=== PATIENT | female | born 1985 | race Caucasian/White ===

== ENCOUNTER 2019-08-11 13:06 | Inpatient (IN) | payer BC ==
[2019-08-11] MEDS ORDERED: Sodium Chloride 0.9% 10 ML Syringe FLUSH PRN (19:31)
[2019-08-11] MEDS ORDERED: Nalbuphine 10 MG/ML Syringe IVPUSH PRN (19:31)
[2019-08-11] MEDS ORDERED: Ondansetron 4 MG/2 ML SDV IVPUSH PRN (19:31)
[2019-08-11] MEDS ORDERED: Misoprostol 25 MCG (1/4 of 100 MCG) Tab VAG ONE ×2 (19:33→23:45)
[2019-08-11] MEDS ORDERED: Oxytocin/Lactated Ringers 10 UNIT/1,000 ML BAG IV SCH ×2 (19:45)
--- NOTE | 2019-08-11 20:14 | PCM.LDHP ---
L&D History of Present Illness - General Date of Service: 08/11/19 Admit Problem/Dx: Patient Status Order with Admit Dx/Problem 08/11/19 19:31 Patient Status [ADT] Routine Admission Diagnosis/Problem Admission Diagnosis/Problem Source of Information: Patient History Limitations: Reports: No Limitations - History of Present Illness Introduction:: Sivan Palma is a 33 year old female at 38 weeks 0 days by a 7-week ultrasound ([facility] 08/25/2019 who presents for medically indicated induction of labor due to chronic hypertension. She reports that she has had irregular contractions over the last week that are occurring every few minutes to 30 minutes and sometimes are getting more painful than others. There never regular and consistent where she felt like she should come in for evaluation. She denies any leaking of fluid or vaginal bleeding. She denies any headaches, vision changes or epigastric pain. Timing/Duration: Reports: intermittent Location, : Reports: Pelvic, Uterus Quality: Reports: Ache Severity: Mild Improves with: Reports: None Worsens with: Reports: None Associated Symptoms: Denies: vaginal bleeding, vaginal discharge, vaginal fluid Present Illness Comments:: Sivan Palma is a 33 year old female at 38 weeks 0 days by a 7-week ultrasound who presents for medically indicated induction of labor due to chronic hypertension. She has had routine care with myself, Dr. Morillo, since 7 weeks gestational age. She received influenza vaccine on 04/22/2019. She received Tdap vaccine on 05/20/2019. Her has been overall uncomplicated however she did start to develop mild range blood pressures starting at around 35 weeks gestational age after she had initial resolution of her elevated blood pressures in early . She did not require any treatment with antihypertensives. She did have to moderate risk factors for preeclampsia with advanced maternal age and obesity and was taking aspirin 81 mg that started at 12 weeks gestational age. complicated by: * Chronic hypertension, patient with initial elevated blood pressures into the mild range in early that resolved by 20 weeks gestational age she then had elevations of her blood pressures at around 35 weeks gestational age with normal labs that have been checked weekly since then * Advanced maternal age -patient currently age 33 with a normal Prequel noninvasive screening test. 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 Low risk for trisomy 13, 18 or 21. Normal sex chromosomal analysis. Female by sex chromosomal testing anatomy ultrasound: Normal anatomy ultrasound completed over the course of 2 ultrasounds , posterior placenta, 50th percentile initially and 31st percentile on follow- up exam, most recent ultrasound at 62nd percentile One hour glucose tolerance test: 134 Second trimester hematocrit/hemoglobin: 40.7%/13.3 on 05/06/2019 Platelets: 263 on 05/06/2019 3-hour glucose tolerance test: Fasting 85, 1 hour 158, 2-hour 92, 3-hour 62 Third trimester hematocrit/hemoglobin: 41.4%/13.8 on 07/15/2019 Platelets: 255 on 07/15/2019 GBS status: Negative - Related Data Allergies/Adverse Reactions: Allergies Allergy/AdvReac Type Severity Reaction Status Date / Time No Known Allergies Allergy Verified 03/11/19 11:42 Past Medical History Cardiovascular History: Reports: Hypertension (chronic) 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: Reports: , Other (See Below) (Benign right breast lump) : 3 Para: 1 Social & Family History - Tobacco Use Smoking Status *Q: Never Smoker Tobacco Use Within Last Twelve Months: No - Tobacco Core Measures Tobacco Use/Smoking Within Last 30 Days: No Smokeless Tobacco Use in Last 30 Days: No - Alcohol Use Alcohol Use History: No - Recreational Drug Use Recreational Drug Use: No Drug Use in Last 12 Months: No - Living Situation & Occupation Living situation: Reports: , with Spouse H&P Review of Systems - Review of Systems: Review Of Systems: See Below General: Denies: Fever, Chills, Malaise, Weakness, Fatigue HEENT: Denies: Eye Pain, Headaches, Rhinitis, Post Nasal Drip, Sinus Congestion , Sore Throat, Visual Changes Pulmonary: Denies: Shortness of Breath, Wheezing, Pleuritic Chest Pain, Cough Cardiovascular: Denies: Chest Pain, Palpitations, Dyspnea on Exertion, Orthopnea Gastrointestinal: Denies: Abdominal Pain, Constipation, Diarrhea, Nausea, Vomiting Genitourinary: Denies: Dysuria, Frequency, Burning, Pain, Urgency Musculoskeletal: Reports: Back Pain (and hip pain of ) Skin: Denies: Rash, Lesions Psychiatric: Denies: Depression, Anxiety Immunologic: Reports: Seasonal Allergy L&D Exam - Exam Exam: See Below - Vital Signs Weight: 124.738 kg - OB Specific Contraction Duration (sec): 45-60 Contraction Frequency (min): 5 Contraction Intensity: Mild Movement: Active Heart Tones: Present Heart Tones per Min: 145 (+15 x 15 accelerations, no decelerations) Heart Rate (FHR) Variability: Moderate (6-25 bmp) Presentation: Vertex Estimated Weight: 7 to 7.5 pounds by Ugo's - Rowell Score Rowell Score Cervix Position: Anterior Rowell Score Consistency: Soft Rowell Score Effacement: >80% (80%) Rowell Score Dilation: 1-2 cm (2 cm) Rowell Score 's Station: -3 Rowell Score Total: 8 - Exam General: Alert, Oriented HEENT: Conjunctiva Clear, EOMI Neck: Supple, Trachea Midline Lungs: Clear to Auscultation, Normal Respiratory Effort Cardiovascular: Regular Rate, Regular Rhythm GI/Abdominal Exam: Soft, Non-Tender, No Distention, Other (Gravid). No: Guarding, Rigid, Rebound Genitourinary: Normal external exam, Other (18 [place] transcervical Fraire bulb placed manually and filled with 60 mL of sterile saline. Mother and tolerated without difficulty.) Extremities: No Pedal Edema Skin: Warm, Dry, Intact Psychiatric: Alert, Normal Affect, Normal Mood - Problem List (1) Third trimester SNOMED Code(s): 52009949 ICD Code: Z34.93 - ENCNTR FOR SUPRVSN OF NORMAL PREG, UNSP, THIRD TRIMESTER Status: Acute Current Visit: Yes (2) Chronic hypertension SNOMED Code(s): 89303566, 20401023 ICD Code: I10 - ESSENTIAL (PRIMARY) HYPERTENSION Status: Acute Current Visit: Yes (3) Chronic hypertension in obstetric context in third trimester SNOMED Code(s): 6245874, 08090107 ICD Code: O10.913 - UNSP PRE-EXISTING HTN COMP , THIRD TRIMESTER Status: Acute Current Visit: Yes (4) Advanced maternal age in multigravida SNOMED Code(s): 581563608 ICD Code: O09.529 - SUPERVISION OF ELDERLY MULTIGRAVIDA, UNSPECIFIED TRIMESTER Status: Acute Current Visit: Yes Problem List Initiated/Reviewed/Updated: Yes Orders Last 24hrs: Active Orders 24 hr Category Date Time Status Patient Status [ADT] Routine ADT 08/11/19 19:31 Active Activity as Tolerated [RC] PFP Care 08/11/19 19:31 Active Communication Order [RC] ASDIRECTED Care 08/11/19 19:31 Active Heart Tones [RC] ASDIRECTED Care 08/11/19 19:31 Active Non Stress Test [RC] PER UNIT ROUTINE Care 08/11/19 19:31 Active Notify Provider [RC] PFP Care 08/11/19 19:31 Active Notify Provider [RC] PRN Care 08/11/19 19:31 Active Peripheral IV Care [RC] . DIRECTED Care 08/11/19 19:31 Active Pump Management, Intrathecal [RC] ASDIRECTED Care 08/11/19 19:33 Active Urinary Catheter Assessment [RC] ASDIRECTED Care 08/11/19 19:31 Active Vital Signs [RC] PER UNIT ROUTINE Care 08/11/19 19:31 Active Regular Diet [DIET] Diet 08/11/19 Dinner Active CBC WITH AUTO DIFF [HEME] Stat Lab 08/11/19 19:31 Ordered COMPREHENSIVE METABOLIC PN,CMP [CHEM] Routine Lab 08/11/19 19:41 Ordered PROTEIN/CREATININE RATIO,URINE [URCHEM] Routine Lab 08/11/19 19:41 Ordered RAPID PLASMA REAGIN,RPR [CHEM] Routine Lab 08/11/19 19:31 Ordered TYPE AND SCREEN [BBK] Stat Lab 08/11/19 19:31 Ordered Lactated Ringers [Ringers, Lactated] 1,000 ml Med 08/11/19 19:45 Active IV ASDIRECTED Nalbuphine [Nubain] Med 08/11/19 19:31 Active 10 mg IVPUSH Q2H PRN Ondansetron [Zofran] Med 08/11/19 19:31 Active 4 mg IVPUSH Q4H PRN Oxytocin/Lactated Ringers [Pitocin in LR 10 Units/1,000 Med 08/11/19 19:45 Ordered ML] 10 unit in 1,000 ml IV .CONTINUOUS Oxytocin/Lactated Ringers [Pitocin in LR 10 Units/1,000 Med 08/11/19 19:45 Active ML] 10 unit in 1,000 ml IV TITRATE Sodium Chloride 0.9% [Saline Flush] Med 08/11/19 19:31 Active 10 ml FLUSH ASDIRECTED PRN Electronic Heart Tones Ext w TOCO [WOMSER] Oth 08/11/19 19:31 Ordered Routine Electronic Heart Tones Internal [WOMSER] Per Unit Ot 08/11/19 19:31 Ordered Routine Peripheral IV Insertion Adult [OM.PC] Routine Ot 08/11/19 19:31 Ordered Resuscitation Status Routine Resus Stat 08/11/19 19:31 Ordered Medication Orders Lactated Ringer's (Ringers, Lactated) 1,000 mls @ 100 mls/hr IV ASDIRECTED CLARKE Oxytocin/Lactated Ringer's (Pitocin In Lr 10 Units/1,000 Ml) 10 unit in 1,000 mls @ 500 mls/hr IV .CONTINUOUS CLARKE Oxytocin/Lactated Ringer's (Pitocin In Lr 10 Units/1,000 Ml) 10 unit in 1,000 mls @ 12 mls/hr IV TITRATE CLARKE; Protocol Nalbuphine HCl (Nubain) 10 mg IVPUSH Q2H PRN PRN Reason: Pain Ondansetron HCl (Zofran) 4 mg IVPUSH Q4H PRN PRN Reason: Nausea/Vomiting Sodium Chloride (Saline Flush) 10 ml FLUSH ASDIRECTED PRN PRN Reason: Keep Vein Open Assessment/Plan Comment:: Refer to observation for medically indicated induction of labor for chronic hypertension Start induction of labor with Cytotec 25 mcg vaginally now and every 4 hours Intermittent monitoring while on Cytotec with monitoring for 30 minutes after placement of Cytotec and may ambulate as tolerated with category 1 monitoring Patient with 18 [place] transcervical Fraire bulb placed and filled with 60 mL of sterile saline. Place Fraire bulb on traction once patient is able to tolerate. Place IV and have Lactated Ringer's at 125 ml/hr if not tolerating regular diet May have regular diet while on Cytotec induction Activity as tolerated May have epidural as desired Plans to breast-feed after delivery Anticipate vaginal delivery unless otherwise indicated José Morillo MD 8:23 PM 08/11/2019
[2019-08-12] MEDS: Lactated Ringers 1,000 ML IV SCH ×5 (02:10→10:38)
[2019-08-12] MEDS ORDERED: ePHEDrine 50 MG/ML SDV IVPUSH PRN (02:25)
[2019-08-12] MEDS ORDERED: Bupivacaine/fentaNYL/NS 100 ML Bag EPIDUR PRN (02:25)
[2019-08-12] MEDS ORDERED: fentaNYL 100 MCG/2 ML SDV EPIDUR PRN (02:25)
[2019-08-12] MEDS ORDERED: diphenhydrAMINE 50 MG/ML SDV IVPUSH PRN (02:25)
--- NOTE | 2019-08-12 03:03 | PCM.PREANE ---
Preanesthetic Assessment - Anesthesia/Transfusion/Family Hx Anesthesia History: Prior Anesthesia Without Reaction Transfusion History: No Prior Transfusion(s) - Review of Systems General: No Symptoms Pulmonary: No Symptoms Cardiovascular: No Symptoms Gastrointestinal: No Symptoms Neurological: No Symptoms Other: Reports: None - Physical Assessment NPO Status Date: 08/12/19 NPO Status Time: 02:58 Vital Signs: Last Vital Signs Temp 98.7 F 08/11/19 20:00 Pulse 108 H 08/11/19 20:00 Resp 18 08/11/19 20:00 BP 133/81 08/11/19 20:00 Pulse Ox 98 08/11/19 20:00 Height: 1.75 m Weight: 124.738 kg ASA Class: 3 (obesity) Mental Status: Alert & Oriented x3 Airway Class: Mallampati = 3 Dentition: Reports: Normal Dentition Thyro-Mental Finger Breadths: 3 Mouth Opening Finger Breadths: 3 ROM/Head Extension: Full Lungs: Clear to Auscultation, Normal Respiratory Effort Cardiovascular: Regular Rate, Regular Rhythm - Lab Values: Laboratory Last Values WBC 8.71 K/mm3 (3.98-10.04) 08/11/19 08:25 RBC 4.76 M/mm3 (3.98-5.22) 08/11/19 08:25 Hgb 12.8 gm/dl (11.2-15.7) 08/11/19 08:25 Hct 38.8 % (34.1-44.9) 08/11/19 08:25 MCV 81.5 fl (79.4-94.8) 08/11/19 08:25 MCH 26.9 pg (25.6-32.2) 08/11/19 08:25 MCHC 33.0 g/dl (32.2-35.5) 08/11/19 08:25 RDW Std Deviation 41.3 fL (36.4-46.3) 08/11/19 08:25 Plt Count 241 K/mm3 (182-369) 08/11/19 08:25 MPV 9.6 fl (9.4-12.3) 08/11/19 08:25 Neut % (Auto) 76.9 % (34.0-71.1) H 08/11/19 08:25 Lymph % (Auto) 16.5 % (19.3-51.7) L 08/11/19 08:25 Hood % (Auto) 6.0 % (4.7-12.5) 08/11/19 08:25 Eos % (Auto) 0.3 (0.7-5.8) L 08/11/19 08:25 Baso % (Auto) 0.0 % (0.1-1.2) L 08/11/19 08:25 Neut # (Auto) 6.69 K/mm3 (1.56-6.13) H 08/11/19 08:25 Lymph # (Auto) 1.44 K/mm3 (1.18-3.74) 08/11/19 08:25 Hood # (Auto) 0.52 K/mm3 (0.24-0.36) H 08/11/19 08:25 Eos # (Auto) 0.03 K/mm3 (0.04-0.36) L 08/11/19 08:25 Baso # (Auto) 0.00 K/mm3 (0.01-0.08) L 08/11/19 08:25 Sodium 136 mEq/L (136-145) 08/11/19 08:25 Potassium 3.7 mEq/L (3.5-5.1) 08/11/19 08:25 Chloride 103 mEq/L (98-107) 08/11/19 08:25 Carbon Dioxide 20 mEq/L (21-32) L 08/11/19 08:25 Anion Gap 16.7 (5-15) H 08/11/19 08:25 BUN 9 mg/dL (7-18) 08/11/19 08:25 Creatinine 0.7 mg/dL (0.55-1.02) 08/11/19 08:25 Est Cr Clr Drug Dosing 117.23 mL/min 08/11/19 08:25 Estimated GFR (MDRD) > 60 mL/min (>60) 08/11/19 08:25 BUN/Creatinine Ratio 12.9 (14-18) L 08/11/19 08:25 Glucose 118 mg/dL (74-106) H 08/11/19 08:25 Calcium 9.1 mg/dL (8.5-10.1) 08/11/19 08:25 Total Bilirubin 0.2 mg/dL (0.2-1.0) 08/11/19 08:25 AST 10 U/L (15-37) L 08/11/19 08:25 ALT 12 U/L (14-59) L 08/11/19 08:25 Alkaline Phosphatase 89 U/L (46-116) 08/11/19 08:25 Total Protein 7.1 g/dl (6.4-8.2) 08/11/19 08:25 Albumin 2.4 g/dl (3.4-5.0) L 08/11/19 08:25 Globulin 4.7 gm/dL 08/11/19 08:25 Albumin/Globulin Ratio 0.5 (1-2) L 08/11/19 08:25 Ur Random Creatinine 160.2 mg/dL (30.0-125.0) H 08/11/19 20:00 U Random Total Protein 20.7 mg/dL (0.0-11.8) H 08/11/19 20:00 Protein/Creatinin Ratio 129.2 mg/g (0-149) 08/11/19 20:00 RPR Non-reactive (NONREACTIVE) 08/11/19 08:25 Blood Type A POSITIVE 08/11/19 08:25 Gel Antibody Screen Negative 08/11/19 08:25 - Allergies Allergies/Adverse Reactions: Allergies Allergy/AdvReac Type Severity Reaction Status Date / Time No Known Allergies Allergy Verified 03/11/19 11:42 - Acknowledgements Anesthesia Type Planned: Epidural Pt an Appropriate Candidate for the Planned Anesthesia: Yes Alternatives and Risks of Anesthesia Discussed w Pt/Guardian: Yes Pt/Guardian Understands and Agrees with Anesthesia Plan: Yes PreAnesthesia Questionnaire Cardiovascular History: Reports: Hypertension (chronic) 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: , 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 (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 Below) (Benign right breast lump) Endocrine/Metabolic History: Reports: Obesity/BMI 30+ - SUBSTANCE USE Smoking Status *Q: Never Smoker Tobacco Use Within Last Twelve Months: No Second Hand Smoke Exposure: No Recreational Drug Use History: No - HOME MEDS Home Medications: Home Meds Aspirin [Adult Low Dose Aspirin EC] 81 mg PO DAILY 08/11/19 [History] RER018/Iron Fumarate/FA/DSS [ 19 Tablet] 1 tab PO DAILY 08/11/19 [ History] - CURRENT (IN HOUSE) MEDS Current Meds: Current Medications Diphenhydramine HCl (Benadryl) 25 mg IVPUSH Q6H PRN PRN Reason: pruritis Ephedrine Sulfate (Ephedrine Sulfate) 5 mg IVPUSH ASDIRECTED PRN PRN Reason: Hypotension Fentanyl (Sublimaze) 100 mcg EPIDUR Q3H PRN PRN Reason: Pain Fentanyl/Bupivacaine HCl (Fentanyl/Bupivacaine/Ns 2 Mcg-0.125% 100 Ml) 100 ml EPIDUR ASDIRECTED PRN PRN Reason: Pain Lactated Ringer's (Ringers, Lactated) 1,000 mls @ 100 mls/hr IV ASDIRECTED CLARKE Last Admin: 08/12/19 02:10 Dose: 999 mls/hr Oxytocin/Lactated Ringer's (Pitocin In Lr 10 Units/1,000 Ml) 10 unit in 1,000 mls @ 500 mls/hr IV .CONTINUOUS CLARKE Oxytocin/Lactated Ringer's (Pitocin In Lr 10 Units/1,000 Ml) 10 unit in 1,000 mls @ 12 mls/hr IV TITRATE CLARKE; Protocol Nalbuphine HCl (Nubain) 10 mg IVPUSH Q2H PRN PRN Reason: Pain Ondansetron HCl (Zofran) 4 mg IVPUSH Q4H PRN PRN Reason: Nausea/Vomiting Sodium Chloride (Saline Flush) 10 ml FLUSH ASDIRECTED PRN PRN Reason: Keep Vein Open Discontinued Medications Misoprostol (Cytotec) 25 mcg VAG ONETIME ONE Stop: 08/11/19 19:34 Last Admin: 08/11/19 19:57 Dose: 25 mcg Misoprostol (Cytotec) 25 mcg VAG ONETIME ONE Stop: 08/11/19 23:46 Last Admin: 08/12/19 00:12 Dose: 25 mcg
--- NOTE | 2019-08-12 08:47 | PCM.PNLD ---
Labor Progress Note - VS & Meds Vital Signs: Last Vital Signs Temp 37.1 C 08/11/19 20:00 Pulse 108 H 08/11/19 20:00 Resp 18 08/11/19 20:00 BP 133/81 08/11/19 20:00 Pulse Ox 98 08/11/19 20:00 Active Medications: Current Medications Diphenhydramine HCl (Benadryl) 25 mg IVPUSH Q6H PRN PRN Reason: pruritis Ephedrine Sulfate (Ephedrine Sulfate) 5 mg IVPUSH ASDIRECTED PRN PRN Reason: Hypotension Fentanyl (Sublimaze) 100 mcg EPIDUR Q3H PRN PRN Reason: Pain Last Admin: 08/12/19 03:09 Dose: 100 mcg Fentanyl/Bupivacaine HCl (Fentanyl/Bupivacaine/Ns 2 Mcg-0.125% 100 Ml) 100 ml EPIDUR ASDIRECTED PRN PRN Reason: Pain Last Admin: 08/12/19 03:10 Dose: 100 ml Lactated Ringer's (Ringers, Lactated) 1,000 mls @ 100 mls/hr IV ASDIRECTED CLARKE Last Admin: 08/12/19 06:40 Dose: 500 mls/hr Oxytocin/Lactated Ringer's (Pitocin In Lr 10 Units/1,000 Ml) 10 unit in 1,000 mls @ 500 mls/hr IV .CONTINUOUS CLARKE Oxytocin/Lactated Ringer's (Pitocin In Lr 10 Units/1,000 Ml) 10 unit in 1,000 mls @ 12 mls/hr IV TITRATE CLARKE; Protocol Last Titration: 08/12/19 07:50 Dose: 8 munits/min, 48 mls/hr Nalbuphine HCl (Nubain) 10 mg IVPUSH Q2H PRN PRN Reason: Pain Ondansetron HCl (Zofran) 4 mg IVPUSH Q4H PRN PRN Reason: Nausea/Vomiting Sodium Chloride (Saline Flush) 10 ml FLUSH ASDIRECTED PRN PRN Reason: Keep Vein Open Discontinued Medications Misoprostol (Cytotec) 25 mcg VAG ONETIME ONE Stop: 08/11/19 19:34 Last Admin: 08/11/19 19:57 Dose: 25 mcg Misoprostol (Cytotec) 25 mcg VAG ONETIME ONE Stop: 08/11/19 23:46 Last Admin: 08/12/19 00:12 Dose: 25 mcg - Uterine Contractions Contraction Frequency (min): 2-3 Contraction Duration (sec): 60-75 Contraction Intensity: Moderate to Strong Uterine Resting Tone: Soft - Monitoring Monitor Mode: Doppler/Auscultation Heart Rate (FHR) Baseline: 140 Heart Rate (FHR) Per Doppler: 140 Heart Rate (FHR) Variability: Moderate (6-25 bmp) Accelerations: Present, 15x15 Decelerations: Variable, Intermittent (<50% x 20 min) Strip Review: Category II - Vaginal Exam Dilation (cm): 5 cm Effacement (Percent): 80% Station: -2 Cervical Position: Anterior Sterile Vaginal Exam Performed By: José Morillo Vaginal Exam Comment: Artificial rupture of membranes performed with [place] with return of moderate amount of clear fluid. Mother and tolerated without difficulty. - Labor Progress (Free Text) Labor Progress: Artificial rupture membranes performed without difficulty. There was a return of a moderate amount of clear fluid. Mother and tolerated without difficulty. Epidural in place and patient doing well Continue augmentation of labor with Pitocin Continuous monitoring Continue routine vitals. Monitor for severe range blood pressures which would indicate need for treatment of these blood pressures. Would also want to evaluate further for possible preeclampsia with severe features. Anticipate vaginal delivery unless otherwise indicated José Morillo MD 8:52 AM 08/12/2019
[2019-08-12] MEDS ORDERED: Acetaminophen 325 MG Tab PO PRN ×2 (09:21→16:27)
[2019-08-12] MEDS ORDERED: ePHEDrine/Normal Saline 25 MG/5 ML Syringe ONE (14:00)
[2019-08-12] MEDS ORDERED: Lidocaine 1.5% with EPINEPHrine 1:200,000 5 ML Amp ONE (14:00)
--- NOTE | 2019-08-12 14:05 | PCM.DEL ---
L & D Note - General Info Date of Service: 08/12/19 Mother's Due Date: 08/25/19 - Delivery Note Labor: Augmented by ARM, Augmented by Oxytocin Cervical Ripening Method: Balloon Device (18 Surinamese transcervical Fraire bulb filled with 60 mL of sterile saline), Misoprostil (25 mcg x 2 doses) Delivery Outcome: Livebirth Delivery Method: Spontaneous Vaginal Delivery-Single Delivery Mode: Vacuum Extraction (Kiwi sorensen extractor) Presentation: Right Occiput Posterior (ROP) Nuchal Cord: Present, Reduced (after delivery) Prep: Povidone-Iodine (Betadine Anesthesia Type: Epidural Amniotic Fluid Description: Clear Episiotomy Type: None Laceration: 3rd Degree (partial third degree repaired with interrupted suture of 2-0 Vicryl rapide), Perineal (Midline perineal portion of repaired completed with 3-0 Vicryl) Suture type: Vicryl Suture size: 2-0 Placenta: Intact, Spontaneous Cord: 3 Vessels Estimated Blood Loss: 300 Resuscitation Needed: Yes : Bulb Syringe, Stimulated, Warmed, [place] Used Provider: José Morillo Score 1 min: 7 Score 5 min: 9 Post Delivery Events: Unplanned Procedure (vacuum extractor delivery due to persistent bradycardia into the 70-80s) Second Stage Interventions: Reports: Pushing, Stirrups/Leg Supports Delivery Comments (Free Text/Narrative):: Stage I: Sivan Palma was admitted for medically indicated induction of labor due to chronic hypertension. On admission her cervix was dilated to 2 cm. She was GBS negative. She had manual placement of a 18 Surinamese transcervical Fraire bulb filled with 60 mL of sterile saline. She was started on Cytotec for initial induction and received a total of 2 doses after which the Fraire bulb came out spontaneously. She was started on Pitocin for augmentation of labor. She was given an epidural for anesthesia. She had artificial rupture of membranes with clear fluid. She had some variable decelerations and her Pitocin was stopped and on evaluation she had quickly changed from 5 cm to complete over the course of approximately 30 minutes. She began pushing when she reached complete cervical dilation. Stage II: During pushing she was noted to be making good progress until the was at a +3 station when there was noted to be persistent bradycardia into the 70s to 80s over the course of 2 minutes. Decision was made to proceed with vacuum extractor delivery. The patient was given counseling on the risks of the vacuum delivery including possible bruising on the head, scalp laceration and bleeding on the brain. Also given warning that it could lead to larger than normal tear. The Kiwi sorensen type extractor was then placed on the head approximately 2 cm anterior to the posterior fontanelle and with the next push suction was applied. Vacuum was applied to 550 mmHg. Over the course of 1 push the head was brought to a +5 station and the vacuum extractor had a pop off at this time. A decision was made to not reapply the vacuum and the delivery was completed without difficulty. The vacuum extractor was applied for a total of 45 seconds. There was 1 total pop-off. On 08/12/2019 she had a vacuum extractor vaginal delivery of a live female infant at 13:06. Apgars of 7 & 9. Weight of 3170 g (6 lbs 15.8 oz). Length of 20 inches. There was a single nuchal cord that was delivered through and reduced after delivery. Infant was delivered in direct OP position. The cord was doubly clamped and cut by father of the with delayed cord clamping of approximately 1 minute. was placed on mother's abdomen. Stage III: She had a spontaneous delivery of an intact placenta in [place] presentation. Three vessel cord. She was given pitocin and fundal massage. She had a partial third-degree laceration of the superior portion of the external anal sphincter. This was repaired with a single interrupted suture of 2-0 Vicryl repeated. The remainder of the midline perineal laceration was repaired with 3-0 Vicryl in normal fashion. Mom and baby were stable to recovery. EBL of 300 mL. José Morillo MD 2:05 PM 08/12/2019 Induction Criteria - Rowell Score Rowell Score Dilation: 1-2 cm Rowell Score Effacement: >80% Rowell Score Infant's Station: -3 Rowell Score Consistency: Soft Rowell Score Cervix Position: Anterior Rowell Score Total: 8 Rowell Score Presenting Part: Reports: Cephalic - Induction Gestational Age >/= 39 wks: No Medical Indication: Chronic hypertension Estimated Pelvis: Reports: Adequate Reassuring Monitoring Strip: Yes Absence of Tachy Systole: Yes - Augmentation Estimated Pelvis: Reports: Adequate Reassuring Monitoring Strip: Yes Absence of Tachy Systole: Yes Vacuum Extractor Progress Note - Alternative Labor Strategies Considered Alternative Labor Strategies Considered:: Reports: Yes Strategies Considered:: Reports: Contraction Intensity Adequate Indications Considered:: Reports: Yes Indications:: Reports: Suspicion of Immediate or Potential Compromise ( persistent bradycardia in the 70-80s) Time Out:: Reports: Yes - Patient Prepared Patient Prepared:: Reports: Yes Informed Consent:: Reports: Verbal Risks: Reports: Yes Risks Include:: Reports: Laceration, Shoulder Dystocia, Maternal Injury Anesthesia/Analgesia Adequate:: Reports: Yes - Probability of Success High Probability of Success:: Reports: Yes Weight Estimated:: Reports: AGA Patient Diabetic:: Reports: No Pelvis Adequate:: Reports: Yes Position:: Direct OP Asynclitic:: Reports: No Station:: +3 - Application Time Maximum Application Time & Number of Pop-Offs Predetermined:: Reports: Yes Maximum Pressure Maintained in [place] (cm Hg):: 55 Total Application Time (min): *max=20min: 1 Number of Times Cup Disengaged:: 1 Type of Vacuum Used:: Reports: Cup: Sorensen type Vacuum Extraction: Successful - Exit Strategy Exit strategy available:: Reports: Yes and resuscitation teams readily available:: Reports: Yes - General Info Date of Service: 08/12/19 - Patient Data Vitals - Most Recent: Last Vital Signs Temp 37.1 C 08/11/19 20:00 Pulse 108 H 08/11/19 20:00 Resp 18 08/11/19 20:00 BP 133/81 08/11/19 20:00 Pulse Ox 98 08/11/19 20:00 Weight - Most Recent: 124.738 kg I&O - Last 24 Hours: Intake & Output 08/11/19 08/12/19 08/12/19 22:59 06:59 14:59 Intake Total 4180 Balance 4180 Lab Results Last 24 Hours: Laboratory Results - last 24 hr 08/11/19 08/11/19 08/11/19 Range/Units 08:25 08:25 08:25 WBC 8.71 (3.98-10.04) K/mm3 RBC 4.76 (3.98-5.22) M/mm3 Hgb 12.8 (11.2-15.7) gm/dl Hct 38.8 (34.1-44.9) % MCV 81.5 (79.4-94.8) fl MCH 26.9 (25.6-32.2) pg MCHC 33.0 (32.2-35.5) g/dl RDW Std Deviation 41.3 (36.4-46.3) fL Plt Count 241 (182-369) K/mm3 MPV 9.6 (9.4-12.3) fl Neut % (Auto) 76.9 H (34.0-71.1) % Lymph % (Auto) 16.5 L (19.3-51.7) % [place] % (Auto) 6.0 (4.7-12.5) % Eos % (Auto) 0.3 L (0.7-5.8) Baso % (Auto) 0.0 L (0.1-1.2) % Neut # (Auto) 6.69 H (1.56-6.13) K/mm3 Lymph # (Auto) 1.44 (1.18-3.74) K/mm3 [place] # (Auto) 0.52 H (0.24-0.36) K/mm3 Eos # (Auto) 0.03 L (0.04-0.36) K/mm3 Baso # (Auto) 0.00 L (0.01-0.08) K/mm3 Sodium (136-145) mEq/L Potassium (3.5-5.1) mEq/L Chloride (98-107) mEq/L Carbon Dioxide (21-32) mEq/L Anion Gap (5-15) BUN (7-18) mg/dL Creatinine (0.55-1.02) mg/dL Est Cr Clr Drug Dosing mL/min Estimated GFR (MDRD) (>60) mL/min BUN/Creatinine Ratio (14-18) Glucose (74-106) mg/dL Calcium (8.5-10.1) mg/dL Total Bilirubin (0.2-1.0) mg/dL AST (15-37) U/L ALT (14-59) U/L Alkaline Phosphatase (46-116) U/L Total Protein (6.4-8.2) g/dl Albumin (3.4-5.0) g/dl Globulin gm/dL Albumin/Globulin Ratio (1-2) Ur Random Creatinine (30.0-125.0) mg/dL U Random Total Protein (0.0-11.8) mg/dL Protein/Creatinin Ratio (0-149) mg/g RPR Non-reactive (NONREACTIVE) Blood Type A POSITIVE Gel Antibody Screen Negative 08/11/19 08/11/19 Range/Units 08:25 20:00 WBC (3.98-10.04) K/mm3 RBC (3.98-5.22) M/mm3 Hgb (11.2-15.7) gm/dl Hct (34.1-44.9) % MCV (79.4-94.8) fl MCH (25.6-32.2) pg MCHC (32.2-35.5) g/dl RDW Std Deviation (36.4-46.3) fL Plt Count (182-369) K/mm3 MPV (9.4-12.3) fl Neut % (Auto) (34.0-71.1) % Lymph % (Auto) (19.3-51.7) % [place] % (Auto) (4.7-12.5) % Eos % (Auto) (0.7-5.8) Baso % (Auto) (0.1-1.2) % Neut # (Auto) (1.56-6.13) K/mm3 Lymph # (Auto) (1.18-3.74) K/mm3 [place] # (Auto) (0.24-0.36) K/mm3 Eos # (Auto) (0.04-0.36) K/mm3 Baso # (Auto) (0.01-0.08) K/mm3 Sodium 136 (136-145) mEq/L Potassium 3.7 (3.5-5.1) mEq/L Chloride 103 (98-107) mEq/L Carbon Dioxide 20 L (21-32) mEq/L Anion Gap 16.7 H (5-15) BUN 9 (7-18) mg/dL Creatinine 0.7 (0.55-1.02) mg/dL Est Cr Clr Drug Dosing 117.23 mL/min Estimated GFR (MDRD) > 60 (>60) mL/min BUN/Creatinine Ratio 12.9 L (14-18) Glucose 118 H (74-106) mg/dL Calcium 9.1 (8.5-10.1) mg/dL Total Bilirubin 0.2 (0.2-1.0) mg/dL AST 10 L (15-37) U/L ALT 12 L (14-59) U/L Alkaline Phosphatase 89 (46-116) U/L Total Protein 7.1 (6.4-8.2) g/dl Albumin 2.4 L (3.4-5.0) g/dl Globulin 4.7 gm/dL Albumin/Globulin Ratio 0.5 L (1-2) Ur Random Creatinine 160.2 H (30.0-125.0) mg/dL U Random Total Protein 20.7 H (0.0-11.8) mg/dL Protein/Creatinin Ratio 129.2 (0-149) mg/g RPR (NONREACTIVE) Blood Type Gel Antibody Screen Med Orders - Current: Current Medications Acetaminophen (Tylenol) 650 mg PO Q4H PRN PRN Reason: Headache Last Admin: 08/12/19 09:47 Dose: 650 mg Diphenhydramine HCl (Benadryl) 25 mg IVPUSH Q6H PRN PRN Reason: pruritis Ephedrine Sulfate (Ephedrine Sulfate) 5 mg IVPUSH ASDIRECTED PRN PRN Reason: Hypotension Fentanyl (Sublimaze) 100 mcg EPIDUR Q3H PRN PRN Reason: Pain Last Admin: 08/12/19 03:09 Dose: 100 mcg Fentanyl/Bupivacaine HCl (Fentanyl/Bupivacaine/Ns 2 Mcg-0.125% 100 Ml) 100 ml EPIDUR ASDIRECTED PRN PRN Reason: Pain Last Admin: 08/12/19 03:10 Dose: 100 ml Lactated Ringer's (Ringers, Lactated) 1,000 mls @ 100 mls/hr IV ASDIRECTED CLARKE Last Admin: 08/12/19 10:38 Dose: 150 mls/hr Oxytocin/Lactated Ringer's (Pitocin In Lr 10 Units/1,000 Ml) 10 unit in 1,000 mls @ 500 mls/hr IV .CONTINUOUS CLARKE Oxytocin/Lactated Ringer's (Pitocin In Lr 10 Units/1,000 Ml) 10 unit in 1,000 mls @ 12 mls/hr IV TITRATE CLARKE; Protocol Last Titration: 08/12/19 10:33 Dose: 16 munits/min, 96 mls/hr Nalbuphine HCl (Nubain) 10 mg IVPUSH Q2H PRN PRN Reason: Pain Ondansetron HCl (Zofran) 4 mg IVPUSH Q4H PRN PRN Reason: Nausea/Vomiting Sodium Chloride (Saline Flush) 10 ml FLUSH ASDIRECTED PRN PRN Reason: Keep Vein Open Discontinued Medications Misoprostol (Cytotec) 25 mcg VAG ONETIME ONE Stop: 08/11/19 19:34 Last Admin: 08/11/19 19:57 Dose: 25 mcg Misoprostol (Cytotec) 25 mcg VAG ONETIME ONE Stop: 08/11/19 23:46 Last Admin: 08/12/19 00:12 Dose: 25 mcg - Problem List & Annotations (1) Third trimester SNOMED Code(s): 46215348 Code(s): Z34.93 - ENCNTR FOR SUPRVSN OF NORMAL PREG, UNSP, THIRD TRIMESTER Status: Acute Current Visit: Yes (2) Chronic hypertension SNOMED Code(s): 93583979, 52998750 Code(s): I10 - ESSENTIAL (PRIMARY) HYPERTENSION Status: Acute Current Visit: Yes (3) Chronic hypertension in obstetric context in third trimester SNOMED Code(s): 5039692, 70362276 Code(s): O10.913 - UNSP PRE-EXISTING HTN COMP , THIRD TRIMESTER Status: Acute Current Visit: Yes (4) Advanced maternal age in multigravida SNOMED Code(s): 869399641 Code(s): O09.529 - SUPERVISION OF ELDERLY MULTIGRAVIDA, UNSPECIFIED TRIMESTER Status: Acute Current Visit: Yes (5) Vacuum extractor delivery, delivered SNOMED Code(s): 749225016 Code(s): O66.5 - ATTEMPTED APPLICATION OF VACUUM EXTRACTOR AND FORCEPS Status: Acute Current Visit: Yes (6) Vaginal delivery SNOMED Code(s): 492839429 Code(s): O80 - ENCOUNTER FOR FULL-TERM UNCOMPLICATED DELIVERY Status: Acute Current Visit: Yes (7) Third degree perineal laceration during delivery SNOMED Code(s): 28787612, 936067075 Code(s): O70.20 - THIRD DEGREE PERINEAL LACERATION DURING DELIVERY, UNSP Status: Acute Current Visit: Yes - Problem List Review Problem List Initiated/Reviewed/Updated: Yes - My Orders Last 24 Hours: My Active Orders 08/11/19 19:31 Patient Status [ADT] Routine Activity as Tolerated [RC] PFP Communication Order [RC] ASDIRECTED Notify Provider [RC] PRN Urinary Catheter Assessment [RC] ASDIRECTED Vital Signs [RC] PER UNIT ROUTINE Nalbuphine [Nubain] 10 mg IVPUSH Q2H PRN Ondansetron [Zofran] 4 mg IVPUSH Q4H PRN Sodium Chloride 0.9% [Saline Flush] 10 ml FLUSH ASDIRECTED PRN Electronic Heart Tones Ext w TOCO [WOMSER] Routine Electronic Heart Tones Internal [WOMSER] Per Unit Routine Peripheral IV Insertion Adult [OM.PC] Routine Resuscitation Status Routine 08/11/19 19:45 Lactated Ringers [Ringers, Lactated] 1,000 ml IV ASDIRECTED Oxytocin/Lactated Ringers [Pitocin in LR 10 Units/1,000 ML] 10 unit in 1,000 ml IV .CONTINUOUS Oxytocin/Lactated Ringers [Pitocin in LR 10 Units/1,000 ML] 10 unit in 1,000 ml IV TITRATE 08/11/19 Dinner Regular Diet [DIET] 08/12/19 09:21 Acetaminophen [Tylenol] 650 mg PO Q4H PRN 08/12/19 13:39 Patient Status Manage Transfer [TRANSFER] Routine - Plan Plan:: Admit to inpatient following vacuum extractor vaginal delivery Continue Pitocin per unit protocol following delivery of placenta and lactated Ringer's until tolerating regular diet Regular diet Vitals per unit routine. Continue to monitor for any signs of severe symptoms of preeclampsia. Monitor for severe range blood pressures greater than 160/110. Ibuprofen and Tylenol for pain control Assist with breast-feeding as needed Continue to monitor lochia Anticipate discharge home on day #1 or 2 depending on status José Morillo MD 2:05 PM 08/12/2019
[2019-08-12] MEDS ORDERED: Magnesium Hydroxide 400 MG/5 ML Susp 30 ML Cup PO PRN (16:27)
[2019-08-12] MEDS ORDERED: Hydrocortisone Acetate 25 MG Supp RECTAL PRN (16:27)
[2019-08-12] MEDS ORDERED: Benzocaine/Menthol 20%-0.5% Spray 56 GM Canister TOP PRN (16:27)
[2019-08-12] MEDS ORDERED: Oxytocin/Lactated Ringers 10 UNIT/1,000 ML BAG IV SCH (16:27)
[2019-08-12] MEDS ORDERED: Witch Hazel Medicated Pads 40/Jar TOP PRN (16:27)
[2019-08-12] MEDS: Ibuprofen 600 MG Tab PO PRN ×2 (17:03→23:29)
[2019-08-12] MEDS: Docusate Sodium 100 MG Cap PO SCH (20:05)
[2019-08-13] MEDS: Ibuprofen 600 MG Tab PO PRN (07:58)
[2019-08-13] MEDS: Docusate Sodium 100 MG Cap PO SCH (08:01)
--- NOTE | 2019-08-13 08:12 | PCM.SN ---
- Free Text/Narrative Note: Post Progress Note PPD # 1 Subjective: Doing well overall. Ambulating without difficulty. Lochia minimal. Voiding without difficulty. Has not had a bowel movement at this time. Tolerating regular diet without nausea or vomiting. Pain controlled with oral medications. Breast-feeding with minimal difficulty. Denies any headaches, vision changes or epigastric pain. Objective: Vitals: Vital Signs - 24 hr 08/12/19 08/12/19 08/12/19 08:30 09:00 09:30 Temperature Pulse, 91 90 94 Peripheral Respiratory Rate Blood Pressure 113/78 112/71 O2 Sat by Pulse Oximetry 08/12/19 08/12/19 08/12/19 10:00 10:30 11:00 Temperature Pulse, 86 81 102 H Peripheral Respiratory Rate Blood Pressure 108/54 L O2 Sat by Pulse Oximetry 08/12/19 08/12/19 08/12/19 11:30 12:00 12:30 Temperature Pulse, 102 H 91 124 H Peripheral Respiratory Rate Blood Pressure 100/57 L 109/60 129/90 O2 Sat by Pulse Oximetry 08/12/19 08/12/19 08/12/19 13:00 13:31 14:22 Temperature Pulse, 133 H 140 H 99 Peripheral Respiratory Rate Blood Pressure 146/127 H 103/64 111/67 O2 Sat by Pulse Oximetry 08/12/19 08/12/19 08/12/19 15:00 15:47 19:55 Temperature 36.6 C 36.7 C Pulse, 124 H 107 H 114 H Peripheral Respiratory 14 18 Rate Blood Pressure 116/75 116/79 129/65 O2 Sat by Pulse 98 99 Oximetry 08/13/19 08/13/19 03:10 07:48 Temperature 36.7 C Pulse, 102 H 69 Peripheral Respiratory 16 20 Rate Blood Pressure 117/69 130/81 O2 Sat by Pulse 99 98 Oximetry Physical Exam General: Alert and oriented, no acute distress Lungs: Clear to auscultation bilaterally Heart: Regular rate and rhythm Abdomen: Soft, minimal appropriate tenderness, non-distended, fundus midline, nontender, and at the umbilicus Extremities: Trace edema in bilateral lower extremities to mid shins ASSESSMENT: 33-year-old female -0-1-2 s/p vacuum-assisted vaginal delivery PPD #1, complicated by persistent bradycardia necessitating vacuum extractor delivery, chronic hypertension, advanced maternal age and breast lump in early with needle biopsy showing benign disease PLAN: Doing well Breast-feeding with minimal difficulty. Assist as needed Lochia minimal. Continue to monitor for appropriate lochia. Continue routine care Continue close monitoring of vitals to monitor for severe range blood pressures which would necessitate treatment. All of her blood pressures have been normal range during her state. Anticipate discharge home today José Morillo MD 8:11 AM 08/13/2019
--- NOTE | 2019-08-13 08:23 | PCM.DCSUM1 ---
Discharge Summary - Hospital Course Free Text/Narrative:: Date of Service: 08/12/19 Mother's Due Date: 08/25/19 - Delivery Note Labor: Augmented by ARM, Augmented by Oxytocin Cervical Ripening Method: Balloon Device (18 [place] transcervical Fraire bulb filled with 60 mL of sterile saline), Misoprostil (25 mcg x 2 doses) Delivery Outcome: Livebirth Infant Delivery Method: Spontaneous Vaginal Delivery-Single Delivery Mode: Vacuum Extraction (Kiwi ravi extractor) Presentation: Right Occiput Posterior (ROP) Nuchal Cord: Present, Reduced (after delivery) Prep: Povidone-Iodine (Betadine Anesthesia Type: Epidural Amniotic Fluid Description: Clear Episiotomy Type: None Laceration: 3rd Degree (partial third degree repaired with interrupted suture of 2-0 Vicryl rapide), Perineal (Midline perineal portion of repaired completed with 3-0 Vicryl) Suture type: Vicryl Suture size: 2-0 Placenta: Intact, Spontaneous Cord: 3 Vessels Estimated Blood Loss: 300 Resuscitation Needed: Yes [place]: Bulb Syringe, Stimulated, Warmed, Satin Used Provider: José Morillo Score 1 min: 7 Score 5 min: 9 Post Delivery Events: Unplanned Procedure (vacuum extractor delivery due to persistent bradycardia into the 70-80s) Second Stage Interventions: Reports: Pushing, Stirrups/Leg Supports Delivery Comments (Free Text/Narrative):: Stage I: Sivan Palma was admitted for medically indicated induction of labor due to chronic hypertension. On admission her cervix was dilated to 2 cm. She was GBS negative. She had manual placement of a 18 [place] transcervical Fraire bulb filled with 60 mL of sterile saline. She was started on Cytotec for initial induction and received a total of 2 doses after which the Fraire bulb came out spontaneously. She was started on Pitocin for augmentation of labor. She was given an epidural for anesthesia. She had artificial rupture of membranes with clear fluid. She had some variable decelerations and her Pitocin was stopped and on evaluation she had quickly changed from 5 cm to complete over the course of approximately 30 minutes. She began pushing when she reached complete cervical dilation. Stage II: During pushing she was noted to be making good progress until the infant was at a +3 station when there was noted to be persistent bradycardia into the 70s to 80s over the course of 2 minutes. Decision was made to proceed with vacuum extractor delivery. The patient was given counseling on the risks of the vacuum delivery including possible bruising on the head, scalp laceration and bleeding on the brain. Also given warning that it could lead to larger than normal tear. The Kiwi ravi type extractor was then placed on the head approximately 2 cm anterior to the posterior fontanelle and with the next push suction was applied. Vacuum was applied to 550 mmHg. Over the course of 1 push the head was brought to a +5 station and the vacuum extractor had a pop off at this time. A decision was made to not reapply the vacuum and the delivery was completed without difficulty. The vacuum extractor was applied for a total of 45 seconds. There was 1 total pop-off. On 08/12/2019 she had a vacuum extractor vaginal delivery of a live female infant at 13:06. Apgars of 7 & 9. Weight of 3170 g (6 lbs 15.8 oz). Length of 20 inches. There was a single nuchal cord that was delivered through and reduced after delivery. Infant was delivered in direct OP position. The cord was doubly clamped and cut by father of the with delayed cord clamping of approximately 1 minute. was placed on mother's abdomen. Stage III: She had a spontaneous delivery of an intact placenta in [place] presentation. Three vessel cord. She was given pitocin and fundal massage. She had a partial third-degree laceration of the superior portion of the external anal sphincter. This was repaired with a single interrupted suture of 2-0 Vicryl repeated. The remainder of the midline perineal laceration was repaired with 3-0 Vicryl in normal fashion. Mom and baby were stable to recovery. EBL of 300 mL. HPI Initial Comments: Date of Service: 08/12/19 Mother's Due Date: 08/25/19 - Delivery Note Labor: Augmented by ARM, Augmented by Oxytocin Cervical Ripening Method: Balloon Device (18 [place] transcervical Fraire bulb filled with 60 mL of sterile saline), Misoprostil (25 mcg x 2 doses) Delivery Outcome: Livebirth Infant Delivery Method: Spontaneous Vaginal Delivery-Single Infant Delivery Mode: Vacuum Extraction (Kiwi ravi extractor) Presentation: Right Occiput Posterior (ROP) Nuchal Cord: Present, Reduced (after delivery) Prep: Povidone-Iodine (Betadine Anesthesia Type: Epidural Amniotic Fluid Description: Clear Episiotomy Type: None Laceration: 3rd Degree (partial third degree repaired with interrupted suture of 2-0 Vicryl rapide), Perineal (Midline perineal portion of repaired completed with 3-0 Vicryl) Suture type: Vicryl Suture size: 2-0 Placenta: Intact, Spontaneous Cord: 3 Vessels Estimated Blood Loss: 300 Resuscitation Needed: Yes [place]: Bulb Syringe, Stimulated, Warmed, Satin Used Provider: José Morillo Score 1 min: 7 Score 5 min: 9 Post Delivery Events: Unplanned Procedure (vacuum extractor delivery due to persistent bradycardia into the 70-80s) Second Stage Interventions: Reports: Pushing, Stirrups/Leg Supports Delivery Comments (Free Text/Narrative):: Stage I: Sivan Palma was admitted for medically indicated induction of labor due to chronic hypertension. On admission her cervix was dilated to 2 cm. She was GBS negative. She had manual placement of a 18 [place] transcervical Fraire bulb filled with 60 mL of sterile saline. She was started on Cytotec for initial induction and received a total of 2 doses after which the Fraire bulb came out spontaneously. She was started on Pitocin for augmentation of labor. She was given an epidural for anesthesia. She had artificial rupture of membranes with clear fluid. She had some variable decelerations and her Pitocin was stopped and on evaluation she had quickly changed from 5 cm to complete over the course of approximately 30 minutes. She began pushing when she reached complete cervical dilation. Stage II: During pushing she was noted to be making good progress until the was at a +3 station when there was noted to be persistent bradycardia into the 70s to 80s over the course of 2 minutes. Decision was made to proceed with vacuum extractor delivery. The patient was given counseling on the risks of the vacuum delivery including possible bruising on the head, scalp laceration and bleeding on the brain. Also given warning that it could lead to larger than normal tear. The Kiwi ravi type extractor was then placed on the head approximately 2 cm anterior to the posterior fontanelle and with the next push suction was applied. Vacuum was applied to 550 mmHg. Over the course of 1 push the head was brought to a +5 station and the vacuum extractor had a pop off at this time. A decision was made to not reapply the vacuum and the delivery was completed without difficulty. The vacuum extractor was applied for a total of 45 seconds. There was 1 total pop-off. On 08/12/2019 she had a vacuum extractor vaginal delivery of a live female at 13:06. Apgars of 7 & 9. Weight of 3170 g (6 lbs 15.8 oz). Length of 20 inches. There was a single nuchal cord that was delivered through and reduced after delivery. was delivered in direct OP position. The cord was doubly clamped and cut by father of the with delayed cord clamping of approximately 1 minute. Infant was placed on mother's abdomen. Stage III: She had a spontaneous delivery of an intact placenta in Stan presentation. Three vessel cord. She was given pitocin and fundal massage. She had a partial third-degree laceration of the superior portion of the external anal sphincter. This was repaired with a single interrupted suture of 2-0 Vicryl repeated. The remainder of the midline perineal laceration was repaired with 3-0 Vicryl in normal fashion. Mom and baby were stable to recovery. EBL of 300 mL. Brief History: Date of Service: 08/12/19. Mother's Due Date: 08/25/19. - Delivery Note. Labor: Augmented by ARM, Augmented by Oxytocin. Cervical Ripening Method: Balloon Device (18 [place] transcervical Fraire bulb filled with 60 mL of sterile saline), Misoprostil (25 mcg x 2 doses). Delivery Outcome: Livebirth. Delivery Method: Spontaneous Vaginal Delivery-Single. Delivery Mode: Vacuum Extraction (Kiwi ravi extractor). Presentation: Right Occiput Posterior (ROP). Nuchal Cord: Present, Reduced ( after delivery). Prep: Povidone-Iodine (Betadine. Anesthesia Type: Epidural. Amniotic Fluid Description: Clear. Episiotomy Type: None. Laceration: 3rd Degree (partial third degree repaired with interrupted suture of 2-0 Vicryl rapide), Perineal (Midline perineal portion of repaired completed with 3-0 Vicryl). Suture type: Vicryl. Suture size: 2-0. Placenta: Intact, Spontaneous. Cord: 3 Vessels. Estimated Blood Loss: 300. Resuscitation Needed : Yes. : Bulb Syringe, Stimulated, Warmed, Satin Used. Provider: José Morillo. Score 1 min: 7. Score 5 min: 9. Post Delivery Events: Unplanned Procedure (vacuum extractor delivery due to persistent bradycardia into the 70-80s). Second Stage Interventions: Reports: Pushing, Stirrups/Leg Supports. Delivery Comments (Free Text/Narrative ):: Stage I: Sivan Palma was admitted for medically indicated induction of labor due to chronic hypertension. On admission her cervix was dilated to 2 cm. She was GBS negative. She had manual placement of a 18 [place] transcervical Fraire bulb filled with 60 mL of sterile saline. She was started on Cytotec for initial induction and received a total of 2 doses after which the Fraire bulb came out spontaneously. She was started on Pitocin for augmentation of labor. She was given an epidural for anesthesia. She had artificial rupture of membranes with clear fluid. She had some variable decelerations and her Pitocin was stopped and on evaluation she had quickly changed from 5 cm to complete over the course of approximately 30 minutes. She began pushing when she reached complete cervical dilation. Stage II: During pushing she was noted to be making good progress until the was at a +3 station when there was noted to be persistent bradycardia into the 70s to 80s over the course of 2 minutes. Decision was made to proceed with vacuum extractor delivery. The patient was given counseling on the risks of the vacuum delivery including possible bruising on the head, scalp laceration and bleeding on the brain. Also given warning that it could lead to larger than normal tear. The Kiwi ravi type extractor was then placed on the head approximately 2 cm anterior to the posterior fontanelle and with the next push suction was applied. Vacuum was applied to 550 mmHg. Over the course of 1 push the head was brought to a +5 station and the vacuum extractor had a pop off at this time. A decision was made to not reapply the vacuum and the delivery was completed without difficulty. The vacuum extractor was applied for a total of 45 seconds. There was 1 total pop-off. On 08/12/2019 she had a vacuum extractor vaginal delivery of a live female infant at 13:06. Apgars of 7 & 9. Weight of 3170 g (6 lbs 15.8 oz). Length of 20 inches. There was a single nuchal cord that was delivered through and reduced after delivery. Infant was delivered in direct OP position. The cord was doubly clamped and cut by father of the with delayed cord clamping of approximately 1 minute. Infant was placed on mother's abdomen. Stage III: She had a spontaneous delivery of an intact placenta in [place] presentation. Three vessel cord. She was given pitocin and fundal massage. She had a partial third-degree laceration of the superior portion of the external anal sphincter. This was repaired with a single interrupted suture of 2-0 Vicryl repeated. The remainder of the midline perineal laceration was repaired with 3-0 Vicryl in normal fashion. Mom and baby were stable to recovery. EBL of 300 mL. Diagnosis: Stroke: No - Discharge Data Discharge Date: 08/13/19 Discharge Disposition: Home, Self-Care 01 Condition: Good - Referral to Home Health Primary Care Physician: José Morillo MD - Discharge Diagnosis/Problem(s) (1) Third trimester SNOMED Code(s): 12965254 ICD Code: Z34.93 - ENCNTR FOR SUPRVSN OF NORMAL PREG, UNSP, THIRD TRIMESTER Status: Acute Current Visit: Yes (2) Chronic hypertension SNOMED Code(s): 65936633, 43656477 ICD Code: I10 - ESSENTIAL (PRIMARY) HYPERTENSION Status: Acute Current Visit: Yes (3) Chronic hypertension in obstetric context in third trimester SNOMED Code(s): 1114353, 10872262 ICD Code: O10.913 - UNSP PRE-EXISTING HTN COMP , THIRD TRIMESTER Status: Acute Current Visit: Yes (4) Advanced maternal age in multigravida SNOMED Code(s): 689933703 ICD Code: O09.529 - SUPERVISION OF ELDERLY MULTIGRAVIDA, UNSPECIFIED TRIMESTER Status: Acute Current Visit: Yes (5) Vacuum extractor delivery, delivered SNOMED Code(s): 207369835 ICD Code: O66.5 - ATTEMPTED APPLICATION OF VACUUM EXTRACTOR AND FORCEPS Status: Acute Current Visit: Yes (6) Vaginal delivery SNOMED Code(s): 800052866 ICD Code: O80 - ENCOUNTER FOR FULL-TERM UNCOMPLICATED DELIVERY Status: Acute Current Visit: Yes (7) Third degree perineal laceration during delivery SNOMED Code(s): 83884924, 284465536 ICD Code: O70.20 - THIRD DEGREE PERINEAL LACERATION DURING DELIVERY, UNSP Status: Acute Current Visit: Yes - Patient Summary/Data Operative Procedure(s) Performed: Vacuum extractor delivery Complications: Persistent bradycardia necessitating vacuum extractor delivery and partial third degree laceration Consults: None Hospital Course: Sivan Palma was admitted for medically indicated induction of labor due to chronic hypertension. On admission her cervix was dilated to 2 cm. She was GBS negative.she had manual placement of an 18 [place] transcervical Fraire bulb filled with 60 mL of sterile saline. She was started on Cytotec for initial induction and received a total of 2 doses after which the Fraire bulb came out spontaneously. She was given pitocin for augmentation. She was given an epidural for anesthesia. She had artificial rupture of membranes with clear fluid. She progressed to complete and began pushing. During pushing she was noted to have persistent bradycardia into the 70s to 80s over the course of 2 minutes. Decision was made to proceed with vacuum extractor delivery. On 08/12/2019 she had a Kiwi arvi type extractor vaginal delivery of a live female infant at 13:06. Apgars of 7 and 9. Weight of 3170 g (6 pounds 15.8 ounces). There was 1 pop off with use of the vacuum extractor. She had a partial third- degree laceration of the external anal sphincter muscle capsule without tear of the muscle belly and the capsule was repaired with an interrupted suture of 2-0 Vicryl rapide. Her course was uneventful. Her pain was well controlled and she had minimal lochia. She was ambulating, tolerating a regular diet and voiding normally. She was breast-feeding with minimal difficulty. She was afebrile and her hematocrit was 38.8 on admission. She desired to be discharged home on the morning of PPD #1. Her blood type is A+. - Patient Instructions Diet: Regular Diet as Tolerated Activity: Apply Ice, As Tolerated Activity, Other: Nothing in the vagina for 6 weeks Driving: May Drive Today Showering/Bathing: May Shower Wound/Incision Care: Keep Operative Site/Wound Site Clean and Dry Notify Provider of: Fever, Increased Pain, Swelling and Redness, Drainage, Nausea and/or Vomiting Other/Special Instructions: Please contact your physician's office if you have heavy vaginal bleeding enough to soak a pad in less than an hour for several hours. Monitor for any signs of an infection in the breasts with severe pain or redness of the breast. - Discharge Plan *PRESCRIPTION DRUG MONITORING PROGRAM REVIEWED*: Not Applicable *COPY OF PRESCRIPTION DRUG MONITORING REPORT IN PATIENT NATHAN: Not Applicable Home Medications: Home Meds [id number]/Iron Fumarate/FA/DSS [ 19 Tablet] 1 tab PO DAILY 08/11/19 [ History] Acetaminophen [Tylenol] 650 mg PO Q6H PRN tablet 08/13/19 [Rx] Benzocaine/Menthol [Dermoplast Pain Relief Blessing] 1 spray TOP ASDIRECTED PRN canister 08/13/19 [Rx] Docusate Sodium [Colace] 100 mg PO BID cap 08/13/19 [Rx] Hydrocortisone Acetate [Anucort-HC] 25 mg RECTAL BID PRN supp 08/13/19 [Rx] Ibuprofen [Motrin] 600 mg PO Q6H PRN tablet 08/13/19 [Rx] Magnesium Hydroxide [Milk of Magnesia] 30 ml PO BEDTIME PRN cup 08/13/19 [Rx] Witch [place] [Tucks] 1 pad TOP ASDIRECTED PRN pad 08/13/19 [Rx] Patient Handouts: Vaginal Delivery, Care After, Care of a Perineal Tear Referrals: José Morillo MD [Primary Care Provider] - (Follow-up in 1 week for routine check and blood pressure check.) - Discharge Summary/Plan Comment DC Time >30 min.: No - Patient Data Vitals - Most Recent: Last Vital Signs Temp 36.7 C 08/13/19 03:10 Pulse 69 08/13/19 07:48 Resp 20 08/13/19 07:48 BP 130/81 08/13/19 07:48 Pulse Ox 98 08/13/19 07:48 Weight - Most Recent: 124.738 kg I&O - Last 24 hours: Intake & Output 08/12/19 08/13/19 08/13/19 22:59 06:59 14:59 Intake Total 1870 Balance 1870 Med Orders - Current: Current Medications Acetaminophen (Tylenol) 650 mg PO Q6H PRN PRN Reason: mild pain or fever Last Admin: 08/12/19 20:06 Dose: 650 mg Benzocaine/Menthol (Dermoplast Pain Relief Blessing) 0 gm TOP ASDIRECTED PRN PRN Reason: Perineal Comfort Measure Last Admin: 08/12/19 17:04 Dose: 1 spray Docusate Sodium (Colace) 100 mg PO BID CLARKE Last Admin: 08/13/19 08:01 Dose: 100 mg Hydrocortisone Acetate (Anucort-Hc) 25 mg RECTAL BID PRN PRN Reason: Hemorrhoid pain Oxytocin/Lactated Ringer's (Pitocin In Lr 10 Units/1,000 Ml) 10 unit in 1,000 mls @ 100 mls/hr IV TITRATE CLARKE; Protocol Ibuprofen (Motrin) 600 mg PO Q6H PRN PRN Reason: Mild pain or fever Last Admin: 08/13/19 07:58 Dose: 600 mg Magnesium Hydroxide (Milk Of Magnesia) 30 ml PO BEDTIME PRN PRN Reason: Constipation Prenat Multivit/[place]/Iron/Folic Ac ( Plus Iron) 1 each PO DAILY CLARKE Last Admin: 08/13/19 08:01 Dose: 1 each Witch [place] (Tucks) 1 pad TOP ASDIRECTED PRN PRN Reason: Perineal Comfort Measure Last Admin: 08/12/19 17:04 Dose: 1 pad Discontinued Medications Acetaminophen (Tylenol) 650 mg PO Q4H PRN PRN Reason: Headache Last Admin: 08/12/19 09:47 Dose: 650 mg Diphenhydramine HCl (Benadryl) 25 mg IVPUSH Q6H PRN PRN Reason: pruritis Ephedrine Sulfate (Ephedrine Sulfate) 5 mg IVPUSH ASDIRECTED PRN PRN Reason: Hypotension Fentanyl (Sublimaze) 100 mcg EPIDUR Q3H PRN PRN Reason: Pain Last Admin: 08/12/19 03:09 Dose: 100 mcg Fentanyl/Bupivacaine HCl (Fentanyl/Bupivacaine/Ns 2 Mcg-0.125% 100 Ml) 100 ml EPIDUR ASDIRECTED PRN PRN Reason: Pain Last Admin: 08/12/19 03:10 Dose: 100 ml Lactated Ringer's (Ringers, Lactated) 1,000 mls @ 100 mls/hr IV ASDIRECTED CLARKE Last Admin: 08/12/19 10:38 Dose: 150 mls/hr Oxytocin/Lactated Ringer's (Pitocin In Lr 10 Units/1,000 Ml) 10 unit in 1,000 mls @ 500 mls/hr IV .CONTINUOUS CLARKE Oxytocin/Lactated Ringer's (Pitocin In Lr 10 Units/1,000 Ml) 10 unit in 1,000 mls @ 12 mls/hr IV TITRATE [place]; Protocol Last Titration: 08/12/19 10:33 Dose: 16 munits/min, 96 mls/hr Misoprostol (Cytotec) 25 mcg VAG ONETIME ONE Stop: 08/11/19 19:34 Last Admin: 08/11/19 19:57 Dose: 25 mcg Misoprostol (Cytotec) 25 mcg VAG ONETIME ONE Stop: 08/11/19 23:46 Last Admin: 08/12/19 00:12 Dose: 25 mcg Nalbuphine HCl (Nubain) 10 mg IVPUSH Q2H PRN PRN Reason: Pain Ondansetron HCl (Zofran) 4 mg IVPUSH Q4H PRN PRN Reason: Nausea/Vomiting Sodium Chloride (Saline Flush) 10 ml FLUSH ASDIRECTED PRN PRN Reason: Keep Vein Open
[2019-08-13] MEDS ORDERED: Prenatal Multivitamin with Calcium/Folic Acid/Iron Tab PO SCH (09:00)
== END 2019-08-13 14:45 | disposition home or self-care (01) | DRG 542 ==
LOC: JD.OB 13:06 → OBSVTOIN 08-12 13:06 → JD.OB 08-12 13:07
PROVIDERS: ADMIT Obstetrics & Gynecology; ATTEND Obstetrics & Gynecology
PROC: 10D07Z6 Extraction of Products of Conception, Vacuum, Via Natural or Artificial Opening (ICD-10-PCS; principal; 2019-08-12)
PROC: 3E0P7VZ Introduction of Hormone into Female Reproductive, Via Natural or Artificial Opening (ICD-10-PCS; 2019-08-12)
PROC: 10907ZC Drainage of Amniotic Fluid, Therapeutic from Products of Conception, Via Natural or Artificial Opening (ICD-10-PCS; 2019-08-12)
PROC: 0DQR0ZZ Repair Anal Sphincter, Open Approach (ICD-10-PCS; 2019-08-12)
PROC: 3E0R3BZ Introduction of Anesthetic Agent into Spinal Canal, Percutaneous Approach (ICD-10-PCS; 2019-08-12)
PROC: 3E033VJ Introduction of Other Hormone into Peripheral Vein, Percutaneous Approach (ICD-10-PCS; 2019-08-12)
PROC: 0U7C7ZZ Dilation of Cervix, Via Natural or Artificial Opening (ICD-10-PCS; 2019-08-12)
DX: O10.92 Unspecified pre-existing hypertension complicating childbirth (principal); O99.214 Obesity complicating childbirth; O69.81X0 Labor and delivery complicated by cord around neck, without compression, not applicable or unspecified; E66.9 Obesity, unspecified; O70.20 Third degree perineal laceration during delivery, unspecified; Z37.0 Single live birth; Z79.82 Long term (current) use of aspirin; Z3A.38 38 weeks gestation of pregnancy; Z79.899 Other long term (current) drug therapy
CPT/HCPCS: 01967; 36415; 51702; 59025; 59409; 80053; 82570; 84156; 85025; 86592; 86850; 86900; 86901; A9270-GY; J2590; J3010; J7050; J7120

== ENCOUNTER 2019-08-21 17:11 | Emergency (ER) | payer BC ==
--- NOTE | 2019-08-21 18:00 | EDM.PDOC ---
ED HPI GENERAL MEDICAL PROBLEM - General Chief Complaint: Chest Pain Stated Complaint: CHEST PAIN Time Seen by Provider: 08/21/19 17:19 Source of Information: Reports: Patient, Family () History Limitations: Reports: No Limitations - History of Present Illness INITIAL COMMENTS - FREE TEXT/NARRATIVE: Mrs. Palma is a very pleasant 33-year-old woman who tells me that she delivered a healthy baby girl this past , 08/12/2019, vaginal delivery. She was discharged home the following day, 08/13/2019. She now presents to the ED after waking up from a nap around 16:30 with pain felt under her right breast, and lightheadedness. She states that the pain is constant, but she has difficulty describing its character other than "pain" and possibly throbbing. It waxes and wanes - currently she is feeling better than earlier. She states that her pain is made worse if she takes a deep breath, better if she breathes shallowly. No prior similar symptoms. The patient states that she has had a cough, chills, a fever up to 101, and nasal congestion since 08/17/2019. Her cough became productive of yellowish sputum today. She has taken ibuprofen and an qztk-rzl-oisabti cough medicine. Here in the ED, the patient is found to be mildly hypertensive, but otherwise hemodynamically stable, afebrile, saturating 98% on room air. The patient's PCP is GRACIE Bell. 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 She received an influenza vaccine this season. Right Chest Pain Score (Numeric/FACES): 7 - Related Data Allergies Allergy/AdvReac Type Severity Reaction Status Date / Time No Known Allergies Allergy Verified 08/21/19 17:17 Home Meds: Home Meds [id number]/Iron Fumarate/FA/DSS [ 19 Tablet] 1 tab PO DAILY 08/11/19 [ History] Acetaminophen [Tylenol] 650 mg PO Q6H PRN tablet 08/13/19 [Rx] Benzocaine/Menthol [Dermoplast Pain Relief [place]] 1 spray TOP ASDIRECTED PRN canister 08/13/19 [Rx] Docusate Sodium [Colace] 100 mg PO BID cap 08/13/19 [Rx] Hydrocortisone Acetate [Anucort-HC] 25 mg RECTAL BID PRN supp 08/13/19 [Rx] Ibuprofen [Motrin] 600 mg PO Q6H PRN tablet 08/13/19 [Rx] Magnesium Hydroxide [Milk of Magnesia] 30 ml PO BEDTIME PRN cup 08/13/19 [Rx] Zora Nichols [Tucks] 1 pad TOP ASDIRECTED PRN pad 08/13/19 [Rx] Past Medical History Cardiovascular History: Reports: Hypertension [employer]ING [employer]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 ED EXAM, GENERAL - Physical Exam Exam: See Below Exam Limited By: No Limitations General Appearance: Alert, WD/WN, Mild Distress (Holding her lower right chest) Eye Exam: Bilateral Eye: EOMI, Normal Inspection Ears: Normal External Exam, Hearing Grossly Normal Nose: Normal Inspection Throat/Mouth: Normal Inspection, Normal Lips, Normal Voice, No Airway Compromise Head: Atraumatic, Normocephalic Neck: Normal Inspection, Full Range of Motion Respiratory/Chest: No Respiratory Distress, Lungs Clear, Normal Breath Sounds, No Accessory Muscle Use, Crackles (lower right anterior chest, at the site of the patient's pain), Other (Reproducible tenderness to palpation of the lower right chest, under the right breast). No: Decreased Breath Sounds, Rhonchi, Wheezing, Stridor, Prolonged Expiration Cardiovascular: Normal Peripheral Pulses, Regular Rate, Rhythm, No Gallop, No JVD, No Murmur, No Rub Peripheral Pulses: 4+: Radial (L), Radial (R) GI/Abdominal: Normal Bowel Sounds, Soft, Non-Tender, No Organomegaly, No Distention, No Abnormal Bruit, No Mass (Female) Exam: Deferred Rectal (Female) Exam: Deferred Back Exam: Normal Inspection, Full Range of Motion, NT Extremities: Normal Inspection, Normal Range of Motion, No Pedal Edema, Normal Capillary Refill Neurological: Alert, Oriented, Normal Cognition, No Motor/Sensory Deficits Psychiatric: Normal Affect Skin Exam: Warm, Dry, Intact, Normal Color, No Rash EKG INTERPRETATION EKG Date: 08/21/19 Time: 17:48 Rhythm: NSR Rate (Beats/Min): 82 [place]: Normal P-Wave: Present QRS: Normal ST-T: Normal QT: Normal Comparison: NA - No Prior EKG Course - Vital Signs Last Recorded V/S: Last Vital Signs Temp 36.5 C 08/21/19 17:17 Pulse 95 08/21/19 17:17 Resp 18 08/21/19 17:17 BP 151/85 H 08/21/19 17:17 Pulse Ox 98 08/21/19 17:17 Orthostatic Blood Pressure [ 143/102 Standing] Orthostatic Blood Pressure [ 140/81 Supine] - Orders/Labs/Meds Orders: Active Orders 24 hr Category Date Time Status Orthostatic Vital Signs [RC] STAT Care 08/21/19 18:19 Active Labs: Laboratory Tests 08/21/19 08/21/19 08/21/19 Range/Units 17:50 17:50 17:50 WBC 7.43 (3.98-10.04) K/mm3 RBC 4.35 (3.98-5.22) M/mm3 Hgb 11.4 (11.2-15.7) gm/dl Hct 36.2 (34.1-44.9) % MCV 83.2 (79.4-94.8) fl MCH 26.2 (25.6-32.2) pg MCHC 31.5 L (32.2-35.5) g/dl RDW Std Deviation 41.3 (36.4-46.3) fL Plt Count 426 H D (182-369) K/mm3 MPV 8.4 L (9.4-12.3) fl Neutrophils % (Manual) 72 H (40-60) % Band Neutrophils % 1 (0-10) % Lymphocytes % (Manual) 19 L (20-40) % Atypical Lymphs % 0 % Monocytes % (Manual) 6 (2-10) % Eosinophils % (Manual) 2 (0.7-5.8) % Basophils % (Manual) 0 L (0.1-1.2) Platelet Estimate Adequate RBC Morph Comment Normal D-Dimer, Quantitative 3.16 H (0.19-0.50) mg/L Sodium 141 (136-145) mEq/L Potassium 3.7 (3.5-5.1) mEq/L Chloride 106 (98-107) mEq/L Carbon Dioxide 24 (21-32) mEq/L Anion Gap 14.7 (5-15) BUN 15 (7-18) mg/dL Creatinine 0.9 (0.55-1.02) mg/dL Est Cr Clr Drug Dosing 91.18 mL/min Estimated GFR (MDRD) > 60 (>60) mL/min BUN/Creatinine Ratio 16.7 (14-18) Glucose 95 (74-106) mg/dL Calcium 8.7 (8.5-10.1) mg/dL Total Bilirubin 0.2 (0.2-1.0) mg/dL AST 18 (15-37) U/L ALT 23 (14-59) U/L Alkaline Phosphatase 79 (46-116) U/L Troponin I < 0.017 (0.00-0.056) ng/mL NT-Pro-B Natriuret Pep (0-125) pg/mL Total Protein 7.3 (6.4-8.2) g/dl Albumin 2.4 L (3.4-5.0) g/dl Globulin 4.9 gm/dL Albumin/Globulin Ratio 0.5 L (1-2) 08/21/19 Range/Units 17:50 WBC (3.98-10.04) K/mm3 RBC (3.98-5.22) M/mm3 Hgb (11.2-15.7) gm/dl Hct (34.1-44.9) % MCV (79.4-94.8) fl MCH (25.6-32.2) pg MCHC (32.2-35.5) g/dl RDW Std Deviation (36.4-46.3) fL Plt Count (182-369) K/mm3 MPV (9.4-12.3) fl Neutrophils % (Manual) (40-60) % Band Neutrophils % (0-10) % Lymphocytes % (Manual) (20-40) % Atypical Lymphs % % Monocytes % (Manual) (2-10) % Eosinophils % (Manual) (0.7-5.8) % Basophils % (Manual) (0.1-1.2) Platelet Estimate RBC Morph Comment D-Dimer, Quantitative (0.19-0.50) mg/L Sodium (136-145) mEq/L Potassium (3.5-5.1) mEq/L Chloride (98-107) mEq/L Carbon Dioxide (21-32) mEq/L Anion Gap (5-15) BUN (7-18) mg/dL Creatinine (0.55-1.02) mg/dL Est Cr Clr Drug Dosing mL/min Estimated GFR (MDRD) (>60) mL/min BUN/Creatinine Ratio (14-18) Glucose (74-106) mg/dL Calcium (8.5-10.1) mg/dL Total Bilirubin (0.2-1.0) mg/dL AST (15-37) U/L ALT (14-59) U/L Alkaline Phosphatase (46-116) U/L Troponin I (0.00-0.056) ng/mL NT-Pro-B Natriuret Pep 111 (0-125) pg/mL Total Protein (6.4-8.2) g/dl Albumin (3.4-5.0) g/dl Globulin gm/dL Albumin/Globulin Ratio (1-2) - Re-Assessments/Exams Free Text/Narrative Re-Assessment/Exam: 08/21/19 17:40 The patient's history and physical examination strongly suggest that her lower right chest pain is musculoskeletal in etiology, likely because of her recent coughing, however, as she is recently , she is at an increased risk for pulmonary embolus, cardiomyopathy, or even an RI. To that end, I have ordered a workup that included blood work, a chest x-ray, and an ECG. 08/21/19 18:18 2-view chest radiograph appears to be grossly normal. The cardiac silhouette is within normal limits. No pulmonary vascular congestion. No pleural effusions. No focal infiltrate. No pneumothorax. Formal read per the Radiologist pending. 08/21/19 18:25 The patient is not orthostatic. 08/21/19 18:46 The patient's CBC is remarkable for platelets elevated at 426,000, and is otherwise unremarkable. Her CMP is unremarkable. Her troponin is undetectably low. Her BNP is within normal limits at 111. Her D-dimer is elevated at 3.16. 08/21/19 18:54 Test results discussed with the patient and her . I explained that the elevated D-dimer does not necessarily mean that the patient has a pulmonary embolus, but that it cannot be excluded without a CT angiogram of the chest. The patient believes, however, that her pain is musculoskeletal and therefore declined the CT angiogram. I agree with the patient, that her chest pain is most likely musculoskeletal, due to her recent coughing. Going forward, I recommended [id number] ibuprofen and Norflex, however, the patient asked about Norflex and breast-feeding. I reviewed the literature, and, oddly enough, there is no comment regarding breast-feeding. The patient declined an offer for a prescription for Norflex. She will take just [id number] ibuprofen instead. Departure - Departure Time of Disposition: 18:56 Disposition: Home, Self-Care 01 Condition: Good Clinical Impression: Musculoskeletal chest pain - Discharge Information *PRESCRIPTION DRUG MONITORING PROGRAM REVIEWED*: Not Applicable *COPY OF PRESCRIPTION DRUG MONITORING REPORT IN PATIENT NATHAN: Not Applicable Referrals: Divya Wilson PA-C [Primary Care Provider] - José Morillo MD [Physician] - Forms: ED Department Discharge Additional Instructions: You were seen in the emergency room for chest pain felt under your right breast , along with lightheadedness. Workup in the ER included blood work, positional blood pressure checks, a chest x-ray, and an ECG. Your entire workup was unremarkable, with the exception of your D-dimer, a measure of blood clot, which was found to be elevated. As discussed, your elevated D-dimer is most likely because of your recent , however, it is possible that you have a blood clot in your lungs. A CT angiogram of your chest to determine whether or not you have a blood clot in your lungs was offered, but declined. Based on your history, physical exam, and ER tests, the cause of your right- sided chest pain is most likely due to a muscle spasm related to your recent coughing. We recommend that you take [id number] ibuprofen, 3 tablets (600 mg) every 8 hours, with food, as needed for discomfort. If any other problems, including worsening of your current symptoms, please do not hesitate to return to the ER. Sepsis Event Note - Evaluation Sepsis Screening Result: No Definite Risk - Focused Exam Vital Signs: Vital Signs Temp Pulse Resp BP Pulse Ox 08/21/19 17:17 36.5 C 95 18 151/85 H 98 Date Exam was Performed: 08/21/19 Time Exam was Performed: 18:46 - My Orders Last 24 Hours: My Active Orders 08/21/19 18:19 Orthostatic Vital Signs [RC] STAT - Assessment/Plan Last 24 Hours: My Active Orders 08/21/19 18:19 Orthostatic Vital Signs [RC] STAT
--- NOTE | 2019-08-21 18:18 | CR ---
Chest: 2 views of the chest were obtained. Comparison: No prior chest imaging. Heart size and mediastinum are normal. Lungs are clear. Bony structures are unremarkable. Impression: 1. Nothing acute is seen on 2 view chest x-ray. Diagnostic code #1 Study was dictated in [place] Standard Time
== END 2019-08-21 19:10 | disposition home or self-care (01) ==
LOC: JD.ED 17:11
DX: O90.89 Other complications of the puerperium, not elsewhere classified (principal); R07.89 Other chest pain; O16.5 Unspecified maternal hypertension, complicating the puerperium; O99.215 Obesity complicating the puerperium; Z79.899 Other long term (current) drug therapy
CPT/HCPCS: 36415; 71046; 71046-26; 80053; 83880; 84484; 85007; 85027; 85379; 93005; 93010; 99283; 99285-25

== ENCOUNTER 2022-06-12 06:47 | Inpatient (IN) | payer BC ==
[~2022-06-12 06:47] MED LIST: Lidocaine 1% 10 ML MDV ONE; ePHEDrine 50 MG/ML SDV ONE
[2022-06-12] MEDS ORDERED: Bupivacaine/fentaNYL/NS 100 ML Bag EPIDUR PRN (07:22)
[2022-06-12] MEDS ORDERED: ePHEDrine 50 MG/ML SDV IVPUSH PRN (07:22)
[2022-06-12] MEDS ORDERED: fentaNYL 100 MCG/2 ML SDV EPIDUR PRN (07:22)
[2022-06-12] MEDS ORDERED: diphenhydrAMINE 50 MG/ML SDV IVPUSH PRN (07:22)
[2022-06-12] MEDS ORDERED: Nalbuphine HCl 10 MG/ 1ML Amp IVPUSH PRN (07:48)
[2022-06-12] MEDS ORDERED: Lidocaine 1% 50 ML MDV INJECT ONE (07:48)
[2022-06-12] MEDS ORDERED: Oxytocin/Lactated Ringers 10 UNIT/1,000 ML BAG IV SCH ×3 (08:00→21:11)
[2022-06-12] MEDS: Lactated Ringers 1,000 ML IV SCH ×3 (08:23→20:07)
[2022-06-12] MEDS ORDERED: Docusate Sodium 100 MG Cap PO PRN (21:11)
[2022-06-12] MEDS ORDERED: Hydrocortisone Acetate 25 MG Supp RECTAL PRN (21:11)
[2022-06-12] MEDS ORDERED: Benzocaine/Menthol 20%-0.5% Spray 78 GM Cannister TOP PRN (21:11)
[2022-06-12] MEDS ORDERED: Witch Hazel Medicated Pads 40/Jar TOP PRN (21:11)
[2022-06-12] MEDS ORDERED: Magnesium Hydroxide 400 MG/5 ML Susp 30 ML Cup PO PRN (21:11)
[2022-06-12] MEDS ORDERED: Acetaminophen 325 MG Tab PO PRN (21:11)
[2022-06-12] MEDS: NIFEdipine 30 MG Tab.ER PO SCH (22:06)
[2022-06-12] MEDS: Ibuprofen 600 MG Tab PO PRN (22:07)
[2022-06-13] MEDS: Ibuprofen 600 MG Tab PO PRN ×2 (08:49→15:46)
[2022-06-13] MEDS ORDERED: Sertraline 50 MG Tab PO SCH (09:00)
[2022-06-13] MEDS ORDERED: Prenatal Multivitamin with Calcium/Folic Acid/Iron Tab PO SCH (09:00)
[2022-06-13] MEDS: NIFEdipine 30 MG Tab.ER PO SCH (21:04)
== END 2022-06-13 21:15 | disposition home or self-care (01) | DRG 560 ==
LOC: JD.OB 06:47 → OBSVTOIN 20:59 → JD.OB 06-13 02:04
PROVIDERS: ADMIT Obstetrics & Gynecology; ATTEND Obstetrics & Gynecology
PROC: 10E0XZZ Delivery of Products of Conception, External Approach (ICD-10-PCS; principal; 2022-06-12)
PROC: 0HQ9XZZ Repair Perineum Skin, External Approach (ICD-10-PCS; 2022-06-12)
PROC: 3E0R3BZ Introduction of Anesthetic Agent into Spinal Canal, Percutaneous Approach (ICD-10-PCS; 2022-06-12)
PROC: 00HU33Z Insertion of Infusion Device into Spinal Canal, Percutaneous Approach (ICD-10-PCS; 2022-06-12)
DX: O13.4 Gestational [pregnancy-induced] hypertension without significant proteinuria, complicating childbirth (principal); Z3A.38 38 weeks gestation of pregnancy; Z37.0 Single live birth; O24.425 Gestational diabetes mellitus in childbirth, controlled by oral hypoglycemic drugs; O69.81X0 Labor and delivery complicated by cord around neck, without compression, not applicable or unspecified; O99.344 Other mental disorders complicating childbirth; O99.214 Obesity complicating childbirth; O70.0 First degree perineal laceration during delivery; F41.8 Other specified anxiety disorders; E66.9 Obesity, unspecified
CPT/HCPCS: 36415; 51702; 59025; 59409; 82947; 85025; 86592; A9270-GY; J2590; J3010; J7120